=== PATIENT | male | born 1945 | race Caucasian/White ===

== ENCOUNTER 2018-10-09 18:34 | Emergency (ER) | payer OTHER ==
[2018-10-09 18:46] VITALS: BMI 26.7
[2018-10-09] MEDS ORDERED: BACLOFEN20 M1 PO (23:02)
[2018-10-09] MEDS ORDERED: VOLTAREN75 MG PO (23:02)
[2018-10-09 23:50] VITALS: BP 160/87
== END 2018-10-09 23:50 | disposition home or self-care (01) ==
LOC: D.ER 18:34
DX: M54.5 Low back pain (principal); V43.62XA Car passenger injured in collision with other type car in traffic accident, initial encounter; Y93.89 Activity, other specified; Y92.410 Unspecified street and highway as the place of occurrence of the external cause